=== PATIENT | female | born 1965 | race African-American/Black ===

== ENCOUNTER → 2018-02-16 | Outpatient (CLI) | payer OTHER | LOC: M WUC 08:23 | DX: M25.561 Pain in right knee (principal); M25.461 Effusion, right knee | CPT/HCPCS: 73564 ==

== ENCOUNTER → 2018-03-30 | Outpatient (REF) | payer OTHER ==
[2018-03-30 12:23] LABS: BASO # 0.1 10^3/uL (0.0-0.2); BASO % 1.1 % (0.0-1.0); EOS # 0.3 10^3/uL (0.0-0.50); EOS % 4.9 % (0.0-3.0); HEMATOCRIT 39.1 % (36.0-47.0); HEMOGLOBIN 12.5 g/dl (12.0-15.5); IMMATURE GRANULOCYTE % 0.2 % (0-3.0); LYMPH # 1.2 10^3/uL (1.5-4.5); LYMPH % 22.4 % (24.0-44.0); MEAN CORPUSCULAR HEMOGLOBIN 28.7 pg (27.0-33.0); MEAN CORPUSCULAR VOLUME 89.9 fl (80.0-96.0); MONO # 0.4 10^3/uL (0.0-0.8); MONO % 7.5 % (0.0-5.0); NEUTROPHILS # 3.5 10^3/uL (1.8-7.7); NEUTROPHILS % 63.9 % (36.0-66.0); PLATELET COUNT, AUTOMATED 260 10^3/uL (150-450); RED BLOOD COUNT 4.35 10^6/uL (4.00-5.40); RED CELL DISTRIBUTION WIDTH 13.2 % (11.5-14.5); WHITE BLOOD COUNT 5.5 10^3/uL (4.0-10.0)
[2018-03-30 13:03] LABS: ERYTHROCYTE SEDIMENTATION RATE 11 mm/hr (0-30)
[2018-03-30 13:48] LABS: C REACTIVE PROTEIN QUANTITATIV 0.55 MG/DL (0.00-0.30)
[2018-03-30 13:48] LABS: RHEUMATOID FACTOR QUANT < 10.0 IU/ML (<15.0)
[2018-03-31 15:36] LABS: ANTINUCLEAR ANTIBODIES DIRECT Negative (Negative); Lyme Disease IgG/IgM Antibodie <0.91 ISR (0.00-0.90); Lyme Disease IgM Ab Quantitati <0.80 index (0.00-0.79)
== END ==
LOC: M LABDRAW1 10:36
DX: M25.561 Pain in right knee (principal)
CPT/HCPCS: 86140

== ENCOUNTER 2019-03-13 14:06 | Inpatient (IN) | payer OTHER ==
[~2019-03-13] VITALS: Ht 154.9 cm; Wt 87.4 kg
[~2019-03-13 14:06] MED LIST: BCP; HYDR25TA6; PROZ40CA; ZEST10TA
[2019-03-13] MEDS ORDERED: ONDANSETRON 4MG/2ML VIAL (J2405) IV ONE (14:20)
[2019-03-13] MEDS ORDERED: ONDANSETRON 4MG/2ML VIAL (J2405) As Ordered ONE (14:26)
[2019-03-13] MEDS ORDERED: NORV2TAB PO (14:27)
[2019-03-13] MEDS ORDERED: BUSP5TA PO (14:27)
[2019-03-13] MEDS ORDERED: BUSP10TA PO (14:40)
[2019-03-13] MEDS ORDERED: ATOR1TAB21 PO (14:40)
[2019-03-13 14:49] LABS: BASO # 0.1 10^3/uL (0.0-0.2); BASO % 1.1 % (0.0-1.0); EOS # 0.1 10^3/uL (0.0-0.5); HEMATOCRIT 40.9 % (36.0-47.0); HEMOGLOBIN 13.2 g/dl (12.0-15.5); LYMPH # 2.5 10^3/uL (1.5-5.0); LYMPH % 38.1 % (24.0-44.0); MEAN CORPUSCULAR HEMOGLOBIN 28.3 pg (27.0-33.0); MEAN CORPUSCULAR HGB CONC 32.3 g/dl (32.0-36.5); MEAN CORPUSCULAR VOLUME 87.8 fl (80.0-96.0); MONO # 0.6 10^3/uL (0.0-0.8); MONO % 9.1 % (0.0-5.0); NEUTROPHILS # 3.2 10^3/uL (1.5-8.5); NEUTROPHILS % 49.4 % (36.0-66.0); PLATELET COUNT, AUTOMATED 196 10^3/uL (150-450); RED BLOOD COUNT 4.66 10^6/uL (4.00-5.40); WHITE BLOOD COUNT 6.5 10^3/uL (4.0-10.0)
[2019-03-13 15:17] LABS: ALBUMIN 4.2 GM/DL (3.2-5.2); ALT/SGPT 42 U/L (12-78); BILIRUBIN,DIRECT 0.1 MG/DL (0.0-0.2); BILIRUBIN,TOTAL 0.3 MG/DL (0.2-1.0); BLOOD UREA NITROGEN 15 MG/DL (7-18); CALCIUM LEVEL 9.8 MG/DL (8.5-10.1); CARBON DIOXIDE LEVEL 25 MEQ/L (21-32); CHLORIDE LEVEL 104 MEQ/L (98-107); CREATININE FOR GFR 0.91 MG/DL (0.55-1.30); GLOMERULAR FILTRATION RATE > 60.0 (>51); GLUCOSE, FASTING 130 MG/DL (70-100); LIPASE 142 U/L (73-393); POTASSIUM SERUM 2.7 MEQ/L (3.5-5.1); SODIUM LEVEL 141 MEQ/L (136-145); TOTAL PROTEIN 7.7 GM/DL (6.4-8.2)
[2019-03-13] MEDS ORDERED: KCL 10MEQ/100ML SWI (KRUN) 10 MEQ in APPROPRIATE DILUENT 1 EA IV ONE (17:00)
[2019-03-13] MEDS ORDERED: POTASSIUM CHLORIDE 10 MEQ SR TABLET PO ONE ×2 (17:15→21:15)
[2019-03-13 17:28] LABS: CK-MB VALUE MASS 1.2 NG/ML (<3.6); CPK CREATINE PHOSPHOKINASE 165 U/L (26-192); MB/CK RELATIVE INDEX 0.73 (< OR =4); TROPONIN I < 0.02 NG/ML (< 0.10)
[2019-03-13] MEDS ORDERED: [UNRECOGNIZED DRUG - CODE] OU (17:40)
[2019-03-13] MEDS ORDERED: POTA10CA32 PO (17:40)
[2019-03-13] MEDS ORDERED: FLUO20CA19 PO (17:40)
[2019-03-13] MEDS ORDERED: AMLO10TA5 PO (17:40)
[2019-03-13] MEDS ORDERED: VITMTA PO (17:40)
[2019-03-13] MEDS ORDERED: VIAC1CHW PO (17:40)
[2019-03-13] MEDS ORDERED: ATOR40TA75 PO (17:40)
--- NOTE | 2019-03-13 18:57 | REP ---
HISTORY: Near syncope. COMPARISON: 12/02/2008, the latest prior. FINDINGS: The superior mediastinal structures are midline. The cardiac silhouette is unremarkable in size, shape and position. The diaphragmatic surfaces of the lungs are regular and the costophrenic angles are clear. The pulmonary woodruff are clear. The imaged osseous structures are intact. IMPRESSION: There is no acute cardiopulmonary disease. Electronically Signed by Cedric Rodriges DO 03/13/2019 07:48 P
--- NOTE | 2019-03-13 20:42 | ECGEPIP ---
[facility] - ED Test Date: 2019-03-13 Pat Name: MJ VASQUEZ Department: Room: - Gender: Female Sample Worker: ANGELIC : 1965 Requested By: ALEX Washburn Order Number: [id number] Reading MD: Nia Sneed Measurements Intervals [place] Rate: 71 P: 59 [place]: 135 QRS: 36 QRSD: 90 T: 41 QT: 424 QTc: 462 Interpretive Statements SINUS RHYTHM NO PRIOR Electronically Signed on 03-13-2019 20:41:48 EDT by Nia Sneed
[2019-03-13] MEDS ORDERED: ACETAMINOPHEN TAB 650MG DOSE (2X325MG) PO PRN (21:15)
[2019-03-13] MEDS ORDERED: MAALOX 30 ML SUSP *UDC PO PRN (21:15)
[2019-03-13] MEDS ORDERED: busPIRone 10 MG TAB PO PRN (21:30)
--- NOTE | 2019-03-13 21:39 | HPEPDOC ---
General Date of Admission Date of Service: Mar 13, 2019 Chief Complaint The patient is a 53-year-old female admitted with a reason for visit of Dizziness. History of Present Illness 53f with hx of depression, anxiety and htn. Pt presents with dizziness and a near syncopal episode. Pt reports severe dizziness. She reports it occurred at rest, but worsened with movement and standing. She did feel like the room was spinning around her, but also that her "body was spinning on the inside". She vo mited several times in the ED. She was noted to be severely hypokalemic. Repletion was started in the ED. Since then she reports the dizziness has resolved. She has stood up and walked to the commode a few times without recurrence. A full ROS was performed and negative except as above. Home Medications Scheduled Amlodipine Besylate (Amlodipine Besylate) 10 Mg Tablet, 10 MG PO DAILY, (Reported) Atorvastatin Calcium (Atorvastatin Calcium) 40 Mg Tablet, 20 MG PO DAILY, (Reported) Calcium Carb/Vitamin D3/Vit K1 (Viactiv 650 mg-12.5 Mcg Chew) 1 Each Tab.chew, 1 EACH PO DAILY, (Reported) Fluoxetine Hcl (Fluoxetine HCl) 20 Mg Capsule, 40 MG PO DAILY, (Reported) Multivitamins (Thera M Plus Tablet) 1 Each Tablet, 1 TAB PO DAILY, (Reported) Potassium Chloride (Potassium Chloride) 10 Meq Capsule.er, 10 MEQ PO BID, (Reported) Scheduled PRN Buspirone HCl (Buspirone HCl) 10 Mg Tablet, 10 MG PO BID PRN for ANXIETY, (Reported) Naphazoline/Hpm/Ps80/Zinc Sulf (Clear Eyes Complete Eye Drops) 15 Ml Drops, 1 DROP OU QID PRN for DRY EYES, (Reported) Allergies Coded Allergies: lisinopril (Verified Allergy, Severe, angioedema, 03/13/19) amoxicillin (Verified Allergy, Intermediate, swelling, 03/13/19) diphenhydramine (Verified Allergy, Intermediate, swelling, 03/13/19) citalopram (Verified Adverse Reaction, Mild, abd pain, 03/13/19) Family History Significant Family History: No pertinent family hx Social History * Smoker: Denies Alcohol: Denies A-FIB/CHADSVASC A-FIB History Current/History of A-Fib/PAF?: No Current PO Anticoag Therapy: No Treatment Treatment ordered: NONE Reason Anticoagulant not given: Not indicated/[id number] Physical Examination General Exam: Positive: Alert, No Acute Distress Eye Exam: Positive: PERRLA, Conjunctiva & lids normal, EOMI; Negative: Sclera icteric ENT Exam: Positive: Atraumatic, Mucous membr. moist/pink, Pharynx Normal Neck Exam: Positive: Supple; Negative: JVD, thyromegaly Chest Exam: Positive: Clear to auscultation, Normal air movement Heart Exam: Positive: Rate Normal, Regular Rhythm, Normal S1, Normal S2; Negative: Murmurs, Rubs Abdomen Exam: Positive: Normal bowel sounds, Soft; Negative: Tenderness, Hepatospenomegaly Extremity Exam: Positive: Normal pulses; Negative: Clubbing, Cyanosis, Edema Skin Exam: Positive: Nl turgor and temperature; Negative: Breakdown, Lesion Neuro Exam: Positive: Normal Gait, Normal Speech, Cranial Nerves 3-12 NL, Re flexes 2+ Psych Exam: Positive: Mental status NL, Mood NL, Oriented x 3 Vital Signs Vital Signs Date Time Temp Pulse Resp B/P (MAP) Pulse Ox O2 Delivery O2 Flow Rate FiO2 03/13/19 21:15 73 18 140/67 (91) 99 Room Air 03/13/19 14:29 97.4 Laboratory Data Labs 24H Laboratory Tests 2 03/13/19 14:36: Immature Granulocyte % (Auto) 0.3, White Blood Count 6.5, Red Blood Count 4.66, Hemoglobin 13.2, Hematocrit 40.9, Mean Corpuscular Volume 87.8, Mean Corpuscular Hemoglobin 28.3, Mean Corpuscular Hemoglobin Concent 32.3, Red Cell Distribution Width 13.3, Platelet Count 196, Neutrophils (%) (Auto) 49.4, Lymphocytes (%) (Auto) 38.1, Monocytes (%) (Auto) 9.1H, Eosinophils (%) (Auto) 2.0, Basophils (%) (Auto) 1.1H, Neutrophils # (Auto) 3.2, Lymphocytes # (Auto) 2.5, Monocytes # (Auto) 0.6, Eosinophils # (Auto) 0.1, Basophils # (Auto) 0.1, Nucleated Red Blood Cells % (auto) 0.0, Anion Gap 12, Glomerular Filtration Rate > 60.0, Calcium Level 9.8, Aspartate Amino Transf (AST/SGOT) 29, Alanine Aminotransferase (ALT/SGPT) 42, Alkaline Phosphatase 109, Total Bilirubin 0.3, Direct Bilirubin 0.1, Total Creatine Kinase 165, Creatine Kinase MB 1.2, Creatine Kinase MB Relative Index 0.73, Troponin I < 0.02, Total Protein 7.7, Albumin 4.2, Albumin/Globulin Ratio 1.20, Lipase 142 CBC/BMP Laboratory Tests 03/13/19 14:36 Red Blood Count 4.66, Mean Corpuscular Volume 87.8, Mean Corpuscular Hemoglobin 28.3, Mean Corpuscular Hemoglobin Concent 32.3, Red Cell Distribution Width 13.3, Neutrophils (%) (Auto) 49.4, Lymphocytes (%) (Auto) 38.1, Monocytes (%) (Auto) 9.1 H, Eosinophils (%) (Auto) 2.0, Basophils (%) (Auto) 1.1 H, Neutrophils # (Auto) 3.2, Lymphocytes # (Auto) 2.5, Monocytes # (Auto) 0.6, Eosinophils # (Auto) 0.1, Basophils # (Auto) 0.1 Assessment/Plan 53f p/w hypokalemia unclear etiology continue repletion check chem and mag in am htn continue norvasc anxiety continue buspar and prozac Plan / VTE VTE Prophylaxis Ordered?: No VTE Exclusion Mechanical Proph: Low Risk for VTE VTE Exclusion Pharmacological: At Low Risk for VTE DIANA CONNELLY MD Mar 13, 2019 21:39
[2019-03-14 00:04] VITALS: BP 126/74
[2019-03-14 06:00] VITALS: BP 118/74
[2019-03-14 06:23] LABS: BASO # 0.1 10^3/uL (0.0-0.2); BASO % 0.9 % (0.0-1.0); EOS # 0.1 10^3/uL (0.0-0.5); EOS % 1.6 % (0.0-3.0); HEMATOCRIT 40.3 % (36.0-47.0); HEMOGLOBIN 12.8 g/dl (12.0-15.5); LYMPH # 1.5 10^3/uL (1.5-5.0); LYMPH % 25.9 % (24.0-44.0); MEAN CORPUSCULAR HEMOGLOBIN 27.8 pg (27.0-33.0); MEAN CORPUSCULAR HGB CONC 31.8 g/dl (32.0-36.5); MEAN CORPUSCULAR VOLUME 87.6 fl (80.0-96.0); MONO # 0.5 10^3/uL (0.0-0.8); MONO % 8.1 % (0.0-5.0); NEUTROPHILS # 3.6 10^3/uL (1.5-8.5); NEUTROPHILS % 63.3 % (36.0-66.0); PLATELET COUNT, AUTOMATED 196 10^3/uL (150-450); WHITE BLOOD COUNT 5.7 10^3/uL (4.0-10.0)
[2019-03-14 06:54] LABS: BLOOD UREA NITROGEN 11 MG/DL (7-18); CALCIUM LEVEL 9.3 MG/DL (8.5-10.1); CARBON DIOXIDE LEVEL 30 MEQ/L (21-32); CHLORIDE LEVEL 107 MEQ/L (98-107); CREATININE FOR GFR 0.78 MG/DL (0.55-1.30); GLOMERULAR FILTRATION RATE > 60.0 (>51); GLUCOSE, FASTING 94 MG/DL (70-100); MAGNESIUM LEVEL 2.1 MG/DL (1.8-2.4); POTASSIUM SERUM 4.1 MEQ/L (3.5-5.1); SODIUM LEVEL 143 MEQ/L (136-145)
[2019-03-14] MEDS: FLUoxetine 20 MG CAP PO SCH (09:37)
[2019-03-14] MEDS: ATORVASTATIN 20 MG TAB PO SCH (09:38)
[2019-03-14] MEDS: amLODIPine 10 MG TAB PO SCH (09:38)
[2019-03-14] MEDS: MULTIVITAMINS/MINERALS THERAP 1 TAB PO SCH (09:38)
--- NOTE | 2019-03-14 11:27 | IPNPDOC ---
Text Note Date of Service The patient was seen on 03/14/19. NOTE Subjective: Patient seen and examined at bedside. No acute overnight events reported. Still reports some dizziness with ambulation. No other medical complaints. Objective: General: NAD, lying comfortably in bed HEENT: NC/AT, EOMI Lungs: CTA B/L Heart: +S1S2, RRR Abd: soft, NT, +BS Ext: no edema A/P: 53f with hx of depression, anxiety and htn presents for dizziness and a near syncopal episode with vomiting. #dizziness/near syncope - PT eval - echocardiogram pending - telemetry #hypokalemia - continue to follow and replete as needed #HTN - continue norvasc #anxiety continue buspar and prozac #DVT prophylaxis - mechanical VS,Fishbone, I+O VS, Fishbone, I+O Laboratory Tests 03/13/19 14:36 Red Blood Count 4.66, Mean Corpuscular Volume 87.8, Mean Corpuscular Hemoglobin 28.3, Mean Corpuscular Hemoglobin Concent 32.3, Red Cell Distribution Width 13.3, Neutrophils (%) (Auto) 49.4, Lymphocytes (%) (Auto) 38.1, Monocytes (%) (Auto) 9.1 H, Eosinophils (%) (Auto) 2.0, Basophils (%) (Auto) 1.1 H, Neutrophils # (Auto) 3.2, Lymphocytes # (Auto) 2.5, Monocytes # (Auto) 0.6, Eosinophils # (Auto) 0.1, Basophils # (Auto) 0.1 03/14/19 05:32 Red Blood Count 4.60, Mean Corpuscular Volume 87.6, Mean Corpuscular Hemoglobin 27.8, Mean Corpuscular Hemoglobin Concent 31.8 L, Red Cell Distribution Width 13.5, Neutrophils (%) (Auto) 63.3, Lymphocytes (%) (Auto) 25.9, Monocytes (%) (Auto) 8.1 H, Eosinophils (%) (Auto) 1.6, Basophils (%) (Auto) 0.9, Neutrophils # (Auto) 3.6, Lymphocytes # (Auto) 1.5, Monocytes # (Auto) 0.5, Eosinophils # (Auto) 0.1, Basophils # (Auto) 0.1, Calcium Level 9.3 Vital Signs Date Time Temp Pulse Resp B/P (MAP) Pulse Ox O2 Delivery O2 Flow Rate FiO2 03/14/19 09:38 67 123/71 03/14/19 06:00 97.9 17 98 03/13/19 23:30 Room Air I&O- Last 24 Hours up to 6 AM 03/14/19 06:00 Intake Total 100 ml Output Total 350 ml Balance -250 ml ARPIT ALFRED MD Mar 14, 2019 11:27
[2019-03-14 14:00] VITALS: BP 124/64
[2019-03-14 19:00] VITALS: BP 123/68
[2019-03-15 06:21] VITALS: BP 120/68
--- NOTE | 2019-03-15 07:56 | ECHO ---
DATE OF PROCEDURE: 03/14/2019 REFERRING PHYSICIAN: Dr. Sewell INDICATION: Syncope HEIGHT: Height 155 cm WEIGHT: 87 kg DIMENSIONS: IVS: 0.8 LV: 4.4 LVPW: 0.8 LA: 3.1 Aorta: 2.4 RV: 2.7 IVC: 0.9 Mitral E wave velocity: 87 A wave: 70 E prime septal: 8.2 E prime lateral: 13.3 FINDINGS: The study is of good technical quality. The patient is in sinus rhythm. Left ventricle is of normal size and systolic function with estimated left ventricle ejection fraction (LVEF) 60-65%. No segmental wall motion abnormalities are appreciated. Right ventricle is also normal size and systolic function. Both atria appear normal. All four cardiac valves were well seen and appear normal. No pericardial effusion is noted. Inferior vena cava is of normal size. Aortic root, aortic arch and visualized segment of abdominal aorta all appear normal. Doppler interrogation reveals no aortic stenosis or insufficiency. Same applies for mitral valve. There is mild tricuspid insufficiency. Calculated pulmonary artery pressure is on the upper limits of normal values. Pulmonic valve is functionally competent. Mitral inflow pattern and tissue Doppler imaging of mitral annulus revealed normal diastolic function. CONCLUSIONS: The study is of good technical quality. Normal LV size and systolic function, normal diastolic function. No significant valvular disease. Normal central venous pressure and likely normal pulmonary artery pressure. Normal echocardiogram. COMMENT: Subacute bacterial endocarditis (SBE) prophylaxis is not recommended. The study does not provide explanation for syncopal event.
[2019-03-15 08:09] LABS: BLOOD UREA NITROGEN 12 MG/DL (7-18); CALCIUM LEVEL 9.1 MG/DL (8.5-10.1); CARBON DIOXIDE LEVEL 31 MEQ/L (21-32); CHLORIDE LEVEL 106 MEQ/L (98-107); CREATININE FOR GFR 0.74 MG/DL (0.55-1.30); GLOMERULAR FILTRATION RATE > 60.0 (>51); GLUCOSE, FASTING 93 MG/DL (70-100); POTASSIUM SERUM 3.6 MEQ/L (3.5-5.1); SODIUM LEVEL 140 MEQ/L (136-145)
[2019-03-15 08:49] VITALS: BP 112/68
[2019-03-15] MEDS: ATORVASTATIN 20 MG TAB PO SCH (08:49)
[2019-03-15] MEDS: amLODIPine 10 MG TAB PO SCH (08:49)
[2019-03-15] MEDS: FLUoxetine 20 MG CAP PO SCH (08:49)
[2019-03-15] MEDS: MULTIVITAMINS/MINERALS THERAP 1 TAB PO SCH (08:49)
--- NOTE | 2019-03-15 13:39 | DS.PDOC ---
Discharge Summary General Date of Admission Mar 14, 2019 at 11:29 Date of Discharge 03/15/19 Discharge Summary PROCEDURES PERFORMED DURING STAY: [None]. DISCHARGE DIAGNOSES: 1. hypokalemia 2. anxiety/depression 3. HTN 4. medication non-compliance COMPLICATIONS/CHIEF COMPLAINT: Hypokalemia. HISTORY OF PRESENT ILLNESS: 53f with hx of depression, anxiety and htn, present with dizziness and a near syncopal episode. She reports it occurred at rest, but worsened with movement and standing. She did feel like the room was spinning around her, but also that her "body was spinning on the inside". She vomited s everal times in the ED. She was noted to be severely hypokalemic. Repletion was started in the ED. Since then she reports the dizziness has resolved. HOSPITAL COURSE: Patient admitted for further evaluation and treatment. Monitored on telemetry with no events noted. Echocardiogram obtained with no significant findings. Seen and evaluated by PT with no further recommendations. Discharged home in stable condition with outpatient follow up. Importance of medication compliance discussed at length with patient at bedside. DISCHARGE MEDICATIONS: Please see below. ALLERGIES: Please see below. PHYSICAL EXAMINATION ON DISCHARGE: Vital Signs: See below General: NAD, lying comfortably in bed HEENT: NC/AT, EOMI, PERRL Lungs: CTA B/L Heart: +S1S2, RRR Abd: soft, NT, +BS Ext: no edema Neuro: no gross focal deficits Psych: AAOx3 LABORATORY DATA: Please see below. DIET: 2 gram sodium DISPOSITION: 01 Home, Self-Care. ITEMS TO FOLLOWUP ON ON OUTPATIENT: 1. PCP in 3-5 days 2. Recommend repeat BMP DISCHARGE CONDITION: [Stable]. TIME SPENT ON DISCHARGE: 40 minutes. Vital Signs/I&Os Vital Signs Date Time Temp Pulse Resp B/P (MAP) Pulse Ox O2 Delivery O2 Flow Rate FiO2 03/15/19 08:49 68 112/68 03/15/19 06:21 98.2 18 100 03/13/19 23:30 Room Air I&O- Last 24 Hours up to 6 AM 03/15/19 06:00 Intake Total 1314 ml Output Total 100 ml Balance 1214 ml Laboratory Data Labs 24H Laboratory Tests 2 03/15/19 07:24: Anion Gap 3L, Glomerular Filtration Rate > 60.0, Blood Urea Nitrogen 12, Creatinine 0.74, Sodium Level 140, Potassium Level 3.6, Chloride Level 106, Carbon Dioxide Level 31, Calcium Level 9.1 CBC/BMP Laboratory Tests 03/15/19 07:24 Calcium Level 9.1 Discharge Medications Scheduled Amlodipine Besylate (Amlodipine Besylate) 10 Mg Tablet, 10 MG PO DAILY, (Reported) Atorvastatin Calcium (Atorvastatin Calcium) 40 Mg Tablet, 20 MG PO DAILY, (Reported) Calcium Carb/Vitamin D3/Vit K1 (Viactiv 650 mg-12.5 Mcg Chew) 1 Each Tab.chew, 1 EACH PO DAILY, (Reported) Fluoxetine Hcl (Fluoxetine HCl) 20 Mg Capsule, 40 MG PO DAILY, (Reported) Multivitamins (Thera M Plus Tablet) 1 Each Tablet, 1 TAB PO DAILY, (Reported) Potassium Chloride (Potassium Chloride) 10 Meq Capsule.er, 10 MEQ PO BID, (Reported) Scheduled PRN Buspirone HCl (Buspirone HCl) 10 Mg Tablet, 10 MG PO BID PRN for ANXIETY, (Reported) Naphazoline/Hpm/Ps80/Zinc Sulf (Clear Eyes Complete Eye Drops) 15 Ml Drops, 1 DROP OU QID PRN for DRY EYES, (Reported) Allergies Coded Allergies: lisinopril (Verified Allergy, Severe, angioedema, 03/13/19) amoxicillin (Verified Allergy, Intermediate, swelling, 03/13/19) diphenhydramine (Verified Allergy, Intermediate, swelling, 03/13/19) citalopram (Verified Adverse Reaction, Mild, abd pain, 03/13/19) ARPIT ALFRED MD Mar 15, 2019 13:39
== END 2019-03-15 12:02 | disposition home or self-care (01) | DRG 425 ==
LOC: M ED 14:06 → M ED INP 14:07 → M MSPAV 03-14 00:04 → OBSVTOIN 03-14 11:29
PROVIDERS: ADMIT Hospitalist; ATTEND Internal Medicine
DX: E87.6 Hypokalemia (principal); I10 Essential (primary) hypertension; R42 Dizziness and giddiness; F41.9 Anxiety disorder, unspecified; F32.9 Major depressive disorder, single episode, unspecified; Z91.14 Patient's other noncompliance with medication regimen; Z79.899 Other long term (current) drug therapy; Z88.0 Allergy status to penicillin; Z88.8 Allergy status to other drugs, medicaments and biological substances; R55 Syncope and collapse

== ENCOUNTER 2019-04-30 22:18 | Emergency (ER) | payer OTHER ==
[~2019-04-30] VITALS: Ht 154.9 cm; Wt 73.6 kg
[~2019-04-30 22:18] MED LIST changes: +AMLO10TA5 PO; +ATOR1TAB21 PO; +ATOR40TA75 PO; +BUSP10TA PO; +BUSP5TA PO; +FLUO20CA19 PO; +NORV2TAB PO; +POTA10CA32 PO; +VIAC1CHW PO; +VITMTA PO; +[UNRECOGNIZED DRUG - CODE] OU
[2019-04-30 22:38] VITALS: BP 121/66
== END 2019-04-30 23:14 | disposition home or self-care (01) ==
LOC: M ED 22:18
DX: S09.90XA Unspecified injury of head, initial encounter (principal); V43.52XA Car driver injured in collision with other type car in traffic accident, initial encounter; Y92.9 Unspecified place or not applicable; Y93.9 Activity, unspecified; Y99.9 Unspecified external cause status; I10 Essential (primary) hypertension; E78.5 Hyperlipidemia, unspecified; G47.30 Sleep apnea, unspecified; F41.9 Anxiety disorder, unspecified; F32.9 Major depressive disorder, single episode, unspecified; Z87.42 Personal history of other diseases of the female genital tract; Z79.899 Other long term (current) drug therapy; Z88.0 Allergy status to penicillin; Z88.8 Allergy status to other drugs, medicaments and biological substances

== ENCOUNTER 2023-03-15 06:44 | Emergency (ER) | payer OTHER ==
[~2023-03-15] VITALS: Ht 154.9 cm; Wt 72.7 kg
[~2023-03-15 06:44] MED LIST changes: -AMLO10TA5 PO; +AMLO1TAB25 PO; -FLUO20CA19 PO; +FLUO20CA22 PO; -POTA10CA32 PO; +POTA10CA60 PO
[2023-03-15 07:43] VITALS: TEMP 98
[2023-03-15] MEDS ORDERED: ISOVUE-370 76% 100ML VIAL As Ordered ONE (09:04)
[2023-03-15 09:17] LABS: BASO # 0.1 10^3/uL (0.0-0.2); BASO % 1.1 % (0.0-1.0); EOS # 0.1 10^3/uL (0.0-0.5); EOS % 1.7 % (0.0-3.0); HEMATOCRIT 41.6 % (36.0-47.0); HEMOGLOBIN 13.3 g/dl (12.0-15.5); LYMPH # 1.4 10^3/uL (1.5-5.0); LYMPH % 27.4 % (24.0-44.0); MEAN CORPUSCULAR HEMOGLOBIN 28.2 pg (27.0-33.0); MEAN CORPUSCULAR VOLUME 88.3 fl (80.0-96.0); MONO # 0.5 10^3/uL (0.0-0.8); MONO % 9.1 % (2.0-8.0); NEUTROPHILS # 3.2 10^3/uL (1.5-8.5); NEUTROPHILS % 60.5 % (36.0-66.0); PLATELET COUNT, AUTOMATED 249 10^3/uL (150-450); RED BLOOD COUNT 4.71 10^6/uL (4.00-5.40); WHITE BLOOD COUNT 5.3 10^3/uL (4.0-10.0)
[2023-03-15 09:32] LABS: ERYTHROCYTE SEDIMENTATION RATE 50 mm/hr (0-30)
[2023-03-15] MEDS ORDERED: dexAMETHasone 20MG/5ML VIAL IV ONE (10:00)
[2023-03-15] MEDS ORDERED: CLEO300C2 PO (10:17)
[2023-03-15] MEDS ORDERED: CLEO150C PO (10:17)
[2023-03-15 10:29] VITALS: BP 110/74; O2SAT 99
== END 2023-03-15 10:34 | disposition home or self-care (01) ==
LOC: M ED 06:44
DX: K02.9 Dental caries, unspecified (principal); L03.211 Cellulitis of face; I10 Essential (primary) hypertension; E78.5 Hyperlipidemia, unspecified; F41.9 Anxiety disorder, unspecified; F32.A Depression, unspecified; G47.33 Obstructive sleep apnea (adult) (pediatric); F17.200 Nicotine dependence, unspecified, uncomplicated; Z88.1 Allergy status to other antibiotic agents; Z88.8 Allergy status to other drugs, medicaments and biological substances; Z79.2 Long term (current) use of antibiotics; Z79.02 Long term (current) use of antithrombotics/antiplatelets; Z79.810 Long term (current) use of selective estrogen receptor modulators (SERMs); Z79.899 Other long term (current) drug therapy
CPT/HCPCS: 70491; 80047; 85025; 85652; 86140; 96374; 99284; J1100; Q9967

== ENCOUNTER 2023-03-25 10:44 | Emergency (ER) | payer OTHER ==
[~2023-03-25] VITALS: Ht 154.9 cm; Wt 72.0 kg
[~2023-03-25 10:44] MED LIST changes: +CLEO150C PO; +CLEO300C2 PO
[2023-03-25 10:45] VITALS: TEMP 97.3
[2023-03-25] MEDS ORDERED: CLIN-250 (10:57)
[2023-03-25] MEDS ORDERED: CLIN150C17 (10:57)
[2023-03-25] MEDS ORDERED: CLEO300C2 PO (12:50)
[2023-03-25 12:58] VITALS: BP 117/65; O2SAT 98
[2023-03-25] MEDS ORDERED: CLINDAMYCIN 150MG CAPSULE PO SCH (16:00)
== END 2023-03-25 12:58 | disposition home or self-care (01) ==
LOC: M ED 10:44
DX: K02.9 Dental caries, unspecified (principal); I10 Essential (primary) hypertension; F32.A Depression, unspecified; Z88.1 Allergy status to other antibiotic agents; Z88.8 Allergy status to other drugs, medicaments and biological substances; Z79.810 Long term (current) use of selective estrogen receptor modulators (SERMs); Z79.02 Long term (current) use of antithrombotics/antiplatelets; Z79.899 Other long term (current) drug therapy

== ENCOUNTER → 2023-08-04 | Outpatient (CLI) | payer OTHER ==
[~2023-08-04] MED LIST changes: +CLIN-250; +CLIN150C17
== END ==
LOC: M RAD 10:09
PROVIDERS: ATTEND Physician Assistant
DX: R07.81 Pleurodynia (principal)

== ENCOUNTER 2024-02-24 07:37 | Observation (INO) | payer OTHER ==
[~2024-02-24] VITALS: Ht 170.2 cm; Wt 71.4 kg
[~2024-02-24 07:37] MED LIST changes: +FLUO-365 PO; -FLUO20CA22 PO; -POTA10CA60 PO; +POTA10CA70 PO
[2024-02-24] MEDS ORDERED: ISOVUE-370 76% 100ML VIAL As Ordered ONE (07:45)
[2024-02-24] MEDS: NS 500 ML IV ONE (08:05)
[2024-02-24 08:12] LABS: BASO # 0.1 10^3/uL (0.0-0.2); BASO % 1.2 % (0.0-1.0); EOS # 0.1 10^3/uL (0.0-0.5); EOS % 2.4 % (0.0-3.0); HEMATOCRIT 40.3 % (36.0-47.0); HEMOGLOBIN 12.8 g/dl (12.0-15.5); LYMPH # 2.2 10^3/uL (1.5-5.0); LYMPH % 37.5 % (24.0-44.0); MEAN CORPUSCULAR HEMOGLOBIN 27.8 pg (27.0-33.0); MEAN CORPUSCULAR HGB CONC 31.8 g/dl (32.0-36.5); MEAN CORPUSCULAR VOLUME 87.6 fl (80.0-96.0); MONO # 0.5 10^3/uL (0.0-0.8); MONO % 8.8 % (2.0-8.0); NEUTROPHILS % 50.1 % (36.0-66.0); PLATELET COUNT, AUTOMATED 215 10^3/uL (150-450); WHITE BLOOD COUNT 5.9 10^3/uL (4.0-10.0)
[2024-02-24 08:30] LABS: INR 1.01; PARTIAL THROMBOPLASTIN TIME 24.4 SECONDS (24.8-34.2)
[2024-02-24 08:38] LABS: BLOOD UREA NITROGEN 19 MG/DL (9-23); CALCIUM LEVEL 8.7 MG/DL (8.5-10.1); CARBON DIOXIDE LEVEL 24 MMOL/L (20-31); CHLORIDE LEVEL 106 MMOL/L (98-107); CK-MB VALUE MASS 1.1 NG/ML (<3.6); CREATININE FOR GFR 0.71 MG/DL (0.55-1.30); GLOMERULAR FILTRATION RATE > 60.0 (>51); GLUCOSE, FASTING 155 MG/DL (60-100); MAGNESIUM LEVEL 1.8 MG/DL (1.8-2.4); POTASSIUM SERUM 3.1 MMOL/L (3.5-5.1); SODIUM LEVEL 138 MMOL/L (136-145)
[2024-02-24 08:41] LABS: CPK CREATINE PHOSPHOKINASE 174 U/L (34-145); MB/CK RELATIVE INDEX 0.63 (< OR =4)
[2024-02-24] MEDS ORDERED: POTASSIUM CHLORIDE 10MEQ SR TABLET PO SCH (09:00)
[2024-02-24] MEDS: KCL 10MEQ/100ML SWI (KRUN) 10 MEQ in IV 1 EA IV ONE (09:01)
[2024-02-24] MEDS: POTASSIUM CHLORIDE 10MEQ SR TABLET PO ONE (09:01)
[2024-02-24 10:17] LABS: CHOLESTEROL LEVEL 133 MG/DL (<200); HDL CHOLESTEROL 55.4 MG/DL (>40); NON-HDL-C 77.6 MG/DL; TRIGLYCERIDES LEVEL 73 MG/DL (<150)
[2024-02-24 10:33] LABS: HEMOGLOBIN A1c 5.3 % (4.0-6.0)
[2024-02-24] MEDS: ASPIRIN 81MG ENTERIC TABLET PO STA (11:02)
[2024-02-24] MEDS: ATORVASTATIN 20 MG TAB PO STA (11:02)
[2024-02-24] MEDS ORDERED: CALC1TAB42 PO (12:15)
[2024-02-24] MEDS ORDERED: AMLO1TAB24 PO (12:15)
[2024-02-24] MEDS ORDERED: VITA500T34 PO (12:15)
[2024-02-24] MEDS ORDERED: PROBCAP2 PO (12:15)
[2024-02-24] MEDS ORDERED: BUSP15TA47 PO (12:15)
[2024-02-24] MEDS ORDERED: MULT-40 PO (12:15)
[2024-02-24] MEDS ORDERED: HOME MED LIST COMPLETE! XX SCH (12:20)
[2024-02-24] MEDS ORDERED: busPIRone 5 MG TAB PO PRN (12:20)
[2024-02-24 12:40] VITALS: BP 123/75; TEMP 98.1
[2024-02-24] MEDS: FLUoxetine 20MG CAP PO SCH (14:06)
[2024-02-24] MEDS: amLODIPine 5 MG TAB PO SCH (14:08)
[2024-02-24 15:02] LABS: VITAMIN B12 LEVEL 1666 PG/ML (211-911)
[2024-02-24 15:09] LABS: FOLATE > 24.00 NG/ML (>5.4)
[2024-02-24 19:35] VITALS: BP 121/68; TEMP 97.9; O2SAT 100
[2024-02-24] MEDS: POTASSIUM CHLORIDE 10MEQ SR TABLET PO SCH (20:23)
[2024-02-25 04:17] VITALS: BP 112/81; TEMP 97.7; O2SAT 100
[2024-02-25 07:35] LABS: BASO # 0.1 10^3/uL (0.0-0.2); BASO % 1.1 % (0.0-1.0); EOS # 0.1 10^3/uL (0.0-0.5); EOS % 1.3 % (0.0-3.0); HEMATOCRIT 40.7 % (36.0-47.0); HEMOGLOBIN 12.7 g/dl (12.0-15.5); LYMPH # 1.7 10^3/uL (1.5-5.0); LYMPH % 30.5 % (24.0-44.0); MEAN CORPUSCULAR HGB CONC 31.2 g/dl (32.0-36.5); MEAN CORPUSCULAR VOLUME 89.6 fl (80.0-96.0); MONO # 0.4 10^3/uL (0.0-0.8); NEUTROPHILS # 3.2 10^3/uL (1.5-8.5); NEUTROPHILS % 58.9 % (36.0-66.0); PLATELET COUNT, AUTOMATED 212 10^3/uL (150-450); RED BLOOD COUNT 4.54 10^6/uL (4.00-5.40); WHITE BLOOD COUNT 5.5 10^3/uL (4.0-10.0)
[2024-02-25 07:52] LABS: BLOOD UREA NITROGEN 16 MG/DL (9-23); CALCIUM LEVEL 9.2 MG/DL (8.5-10.1); CARBON DIOXIDE LEVEL 26 MMOL/L (20-31); CHLORIDE LEVEL 108 MMOL/L (98-107); CREATININE FOR GFR 0.86 MG/DL (0.55-1.30); GLOMERULAR FILTRATION RATE > 60.0 (>51); GLUCOSE, FASTING 101 MG/DL (60-100); POTASSIUM SERUM 4.3 MMOL/L (3.5-5.1); SODIUM LEVEL 140 MMOL/L (136-145)
[2024-02-25] MEDS: ASPIRIN 81MG ENTERIC TABLET PO SCH (08:25)
[2024-02-25] MEDS: ATORVASTATIN 20 MG TAB PO SCH (08:26)
[2024-02-25 08:27] VITALS: BP 104/58
[2024-02-25 08:29] VITALS: BP 104/58
[2024-02-25] MEDS ORDERED: ATORVASTATIN 20 MG TAB PO SCH (09:00)
[2024-02-25] MEDS ORDERED: POTA-151 PO (09:54)
[2024-02-25] MEDS ORDERED: ATOR40TA75 PO (09:54)
[2024-02-25] MEDS ORDERED: ASPI81TAEC PO (09:54)
[2024-02-28 06:52] LABS: COPPER PLASMA 105 mcg/dL (70-175)
== END 2024-02-25 11:01 | disposition home or self-care (01) ==
LOC: EDBD 07:37 → M ED 07:37 → M ED INP 07:38 → M MSPAV 12:27
PROVIDERS: ADMIT Internal Medicine; ATTEND Internal Medicine
DX: H53.8 Other visual disturbances (principal); R42 Dizziness and giddiness; R26.81 Unsteadiness on feet; E87.6 Hypokalemia; I10 Essential (primary) hypertension; G47.33 Obstructive sleep apnea (adult) (pediatric); Z91.198 Patient's noncompliance with other medical treatment and regimen for other reason; F41.9 Anxiety disorder, unspecified; F32.A Depression, unspecified; E78.5 Hyperlipidemia, unspecified; Z90.89 Acquired absence of other organs; Z98.891 History of uterine scar from previous surgery; Z82.49 Family history of ischemic heart disease and other diseases of the circulatory system; Z82.3 Family history of stroke; Z83.6 Family history of other diseases of the respiratory system; Z80.1 Family history of malignant neoplasm of trachea, bronchus and lung; Z88.8 Allergy status to other drugs, medicaments and biological substances; Z88.0 Allergy status to penicillin; Z79.899 Other long term (current) drug therapy
CPT/HCPCS: 36415; 70450; 70496; 70498; 70551; 71045; 80047; 80048; 80061; 81001; 82525; 82550; 82553; 82607; 82746; 83036; 83735; 84132; 84425; 84439; 84443; 84484; 85025; 85610; 85730; 86850; 86900; 86901; 87086; 87486; 87581; 87633; 87798; 93005; 93041; 93306; 94760; 96365; 96366; 99285; Q9967

== ENCOUNTER 2025-05-18 09:42 | Emergency (ER) | payer OTHER ==
[~2025-05-18] VITALS: Ht 157.5 cm; Wt 73.5 kg
[~2025-05-18 09:42] MED LIST changes: +AMLO1TAB24 PO; +ASPI81TAEC PO; +BUSP15TA47 PO; +CALC1TAB42 PO; +MULT-40 PO; +POTA-151 PO; +PROBCAP2 PO; +VITA500T43 PO
[2025-05-18 11:30] VITALS: BP 123/69; TEMP 97.5; O2SAT 100
== END 2025-05-18 12:01 | disposition home or self-care (01) ==
LOC: M ED 09:42
DX: M79.605 Pain in left leg (principal); R68.2 Dry mouth, unspecified; R22.42 Localized swelling, mass and lump, left lower limb; G47.33 Obstructive sleep apnea (adult) (pediatric); F41.9 Anxiety disorder, unspecified; F32.A Depression, unspecified; Z88.1 Allergy status to other antibiotic agents; Z88.8 Allergy status to other drugs, medicaments and biological substances; Z79.82 Long term (current) use of aspirin; Z79.899 Other long term (current) drug therapy; Z79.02 Long term (current) use of antithrombotics/antiplatelets